=== PATIENT | female | born 1930 | race Caucasian/White ===

== ENCOUNTER 2016-09-10 10:12 | Emergency (ER) | payer OTHER, MEDICARE ==
--- NOTE | 2016-09-10 10:39 | ED GENERAL ADULT ---
History of Present Illness General Chief Complaint: Headache Stated Complaint: RUIZ Source: patient Exam Limitations: no limitations Vital Signs & Intake/Output Vital Signs & Intake/Output Vital Signs Date Time Temp Pulse Resp B/P Pulse O2 O2 Flow FiO2 Ox Delivery Rate 09/10 1024 97.3 101 18 159/76 97 Room Air Allergies Coded Allergies: No Known Allergies (09/10/16) Triage Note: TRIAGE; PT TO ED WITH MULTIPLE COMPLAINTS. STATES THAT LAST SUNDAY SHE HAD AN EPISODE OF DIARRHEA X1 EPISODE, [facility], 5 DAYS AFTER HER EPISODE BECAUSE SHE WAS HAVING A HEADACHE. SHE WAS DX WITH A HEADACHE, HIGH BLOOD PRESSURE, AND DEHYDRATION. PT HAS A HX OF HIGH BLOOD PRESSURE, AND TAKES VALSARTAN DAILY, AND METOPROLOL BID, HOWEVER, THE [facility] DOCTOR TOLD HER TO ONLY TAKE THE PILL ONCE A DAY, SO PT HAS TAKEN THE METOPROLOL ONLY ONCE A DAY ON SUNDAY AND SUNDAY. PT STATES SHE HAD ANOTHER EPISODE OF DIARRHEA X1 EPISODE THIS AM. ALSO C/O HEADACHE INTERMITTENTLY X1 WEEK. PT HAS BEEN TAKING TYLENOL FOR THE PAIN WITH RELIEF. DENIES ANY VISUAL CHANGES. DENIES ANY N/V. DENIES ANY CP/SOB. PETER KAMARA D TO EVAL. Triage Nurses Notes Reviewed? yes Onset: Abrupt Duration: week(s): (1), constant Timing: recent history Injury Environment: home No Modifying Factors: none HPI: 85-year-old female comes into emergency room with multiple complaints. Patient reports that for the past week she's been experiencing some loose stools which is not normal for her. Patient has also been feeling some general body aches, bilateral shoulder pain and some spasming in her left arm. Denies any chest pain or shortness of breath. Patient has also been experiencing a posterior headache and a warm sensation in in the back of her neck. Denies any abdominal pain. Denies any vomiting. Patient has a history of hypertension and hypothyroid. Nothing has seemed to make the symptoms better. Patient reports that she is a high functioning 85-year-old. (FAVIO GREEN,ANH) Reconcile Medications Aspirin (Aspirin*) 81 MG TAB.CHEW 1 TAB PO QPM HEART HEALTH (Reported) Levothyroxine Sodium 88 MCG TABLET 1 TAB PO DAILY AC THYROID (Reported) Lorazepam (Ativan) 0.5 MG TABLET 1 TAB PO QPM PRN sleep Metoprolol Succinate 25 MG TAB 1 TAB PO BID HEART (Reported) Nitrofurantoin Monohyd/M-Cryst (Macrobid 100 MG Capsule) 100 MG CAPSULE 1 CAP PO BID uti with food Ranitidine (Ranitidine HCl) 150 MG TABLET 1 TAB PO DAILY GI (Reported) Simvastatin (Simvastatin*) 20 MG TABLET 1 TAB PO QPM CHOLESTEROL (Reported) Valsartan 80 MG TABLET 1 TAB PO DAILY HEART (Reported) (CINTHYA MARCUS,BELLA) Past History Travel History Traveled to [place] past 21 day No Medical History Any Pertinent Medical History? see below for history Cardiovascular: hypertension, hyperlipidemia Gastrointestinal: GERD Endocrine: hypothyroidism Surgical History Surgical History: non-contributory Psychosocial History What is your primary language Polish Tobacco Use: Never used Family History Hx Contributory? No (ANH LÓPEZ) Review of Systems Review of Systems Constitutional: Reports: see HPI. EENTM: Reports: no symptoms. Respiratory: Reports: no symptoms. Cardiovascular: Reports: no symptoms. GI: Reports: see HPI. Genitourinary: Reports: no symptoms. Musculoskeletal: Reports: see HPI. Skin: Reports: no symptoms. Neurological/Psychological: Reports: see HPI. Hematologic/Endocrine: Reports: no symptoms. Immunologic/Allergic: Reports: no symptoms. All Other Systems: Reviewed and Negative (ANH LÓPEZ) Physical Exam Physical Exam General Appearance: well developed/nourished, no apparent distress, alert Head: atraumatic, normal appearance Eyes: Bilateral: normal appearance, EOMI. Ears, Nose, Throat: normal ENT inspection, hearing grossly normal Neck: normal inspection, full range of motion Respiratory: normal breath sounds, no respiratory distress Cardiovascular: regular rate/rhythm Gastrointestinal: normal bowel sounds, soft, non-tender Back: normal inspection Extremities: normal inspection, normal range of motion Neurologic/Psych: no motor/sensory deficits, awake, alert, oriented x 3, normal gait, normal mood/affect, evaporator operator II-XII nml as tested, finger to nose intact Skin: intact, normal color Core Measures ACS in differential dx? No CVA/TIA Diagnosis: No Severe Sepsis Present: No Septic Shock Present: No (ANH LÓPEZ) Progress Differential Diagnoses I considered the following diagnoses in my evaluation of the patient: Dehydration, electrolyte abnormality, CVA, intracranial bleed, acute HI, enteritis, C. difficile, Plan of Care: Orders Procedure Date/time Status Add-on Test (ER Only) 09/10 113 Active CULTURE,URINE 09/10 1040 Active CULTURE,STOOL 09/10 1038 Active C.DIFFICILE 09/10 1038 Active URINALYSIS 09/10 1038 Complete TROPONIN LEVEL 09/10 103 Complete MAGNESIUM 09/10 103 Complete LIPASE 09/10 1038 Complete COMPREHENSIVE METABOLIC PANEL 09/10 1038 Complete CBC WITHOUT DIFFERENTIAL 09/10 1038 Complete EKG 09/10 103 Active Laboratory Tests 09/10/16 1110: Anion Gap 13, Estimated GFR 53 L, BUN/Creatinine Ratio 20.0, Glucose 100 H, Calcium 9.5, Magnesium 1.6, Total Bilirubin 0.4, AST 25, ALT 37, Alkaline Phosphatase 71, Troponin I < 0.01, Total Protein 7.4, Albumin 4.2, Globulin 3.2, Albumin/Globulin Ratio 1.3, Lipase 171, CBC w Diff NO MAN DIFF REQ, RBC 4.54, MCV 89.3, MCH 30.4, RDW 12.4, MPV 7.5, Gran % 59.2, Lymphocytes % 26.9, Monocytes % 10.9 H, Eosinophils % 2.3, Basophils % 0.7, Absolute Granulocytes 4.2, Absolute Lymphocytes 1.9, Absolute Monocytes 0.8 H, Absolute Eosinophils 0.2, Absolute Basophils 0.1, PUBS MCHC 34.0 09/10/16 1041: Urinalysis LIGHT H, Urine Color STRAW, Urine Clarity CLEAR, Urine pH 6.5, Ur Specific [place] <= 1.005, Urine Protein NEG, Urine Ketones NEG, Urine Nitrite NEG, Urine Bilirubin NEG, Urine Urobilinogen 0.2, Ur Leukocyte Esterase MOD H, Ur Microscopic SEDIMENT EXAMINED, Urine RBC 1-3, Urine WBC 3-5 H, Ur Epithelial Cells RARE, Urine Hemoglobin SMALL H, Urine Glucose NEG Microbiology 09/10 104 URINE ROUT: Urine Culture - RECD 09/10 1038 STOOL: Clostridium difficile Toxin A & B - ORD 09/10 1038 STOOL: Stool Culture - ORD PATIENT STATES SHE ABRUPTY RAN OUT OF HER ATIVAN 0.5 MG THAT SHE TAKES DAILY AT NIGHT 1 WEEK AGO. SHE WAS TAKING THEM DAILY FOR 3 MONTHS BUT THEN HER DOCTOR RETIRED. SHE IS WAITING FOR AN APPOINTMENT IN OCTOBER. NO SEIZURES. (CINTHYA MARCUS,BELLA) Diagnostic Imaging: Viewed by Me: CT Scan. Discussed w/RAD: CT Scan. Radiology Impression: EXAM TYPE: CAT - CT HEAD WO IV CONTRAST EXAMINATION: CT HEAD WITHOUT CONTRAST CLINICAL INFORMATION: Headache COMPARISON: None. TECHNIQUE : Contiguous axial imaging was performed from the skull base to vertex without intravenous administration of contrast. DLP: 529 mGy-cm. FINDINGS: There is no intracranial hemorrhage or hematoma. There is mild fullness of the ventricles along with mild accentuation cortical sulci and fissures consistent with patient age. There is no superimposed hydrocephalus, edema, or mass effect. There is small low attenuation left external capsule image 27/56 likely small vessel ischemic change/gliosis. There is no visible acute territorial infarct. There is extra-axial fluid lateral posterior fossa on left measuring 1.5 x 1.8 cm in greatest dimension without midline shift or impression on the fourth ventricle. This likely represents a small chronic arachnoid cyst. The calvarium appears intact. There is no pneumocephalus or orbital emphysema. The visualized sinuses and middle ears and mastoid air cells show no significant mucosal thickening. There are no air-fluid levels. IMPRESSION: 1. No acute intracranial abnormality. No hemorrhage, edema, or mass effect. 2. Small vessel ischemic change/gliosis left external capsule. 3. Small arachnoid cyst left lateral posterior fossa 1.5 x 1.8 cm. No displacement fourth ventricle. Initial ED EKG: normal intervals, normal p-waves, normal QRS complex, normal sinus rhythm, rate (83) Comments: 09/10/2016 12:45:19 PM Upon reevaluating the patient she did admit that she recently discontinued her Ativan abruptly about a week ago because she ran out of the medication and will not be getting a refill for another couple weeks. This could be potentially explaining some of the patient's symptoms. Patient was prescribed a 2 week supply and told to contact her regular doctor who prescribes it. Patient was seen by Dr. gil. Patient clinically looks well. Nontoxic-appearing. In no apparent distress. Patient understands and agrees with plan of care. Patient was reevaluated multiple times. (FAVIO GREEN,ANH) Departure Departure Disposition: HOME OR SELF CARE Condition: Stable Referrals: CLAUDIA MARCUS,LATOSHA Teixeira. Additional Instructions: Please follow-up with primary care DrBaldo provided for further evaluation. Return to emergency room immediately if any other concerns worsening symptoms. Cause of your symptoms are unclear at this time. Please go over all results of today's visit with your primary care doctor. Contact your primary care doctor to let them know you were here in the emergency room. There may be nonspecific findings which may not be related to your visit today here in the emergency room but may require further evaluation and chronic monitoring by your primary care doctor. If you had a laceration today the chance of foreign body always remains. You should follow-up with your primary care doctor for recheck in 3-5 days for a wound check. If you had an x-ray done there is a chance that a fracture could have been missed on initial read and you should follow-up with your primary care doctor for repeat x-rays if symptoms persist. If your blood pressure was elevated here in the emergency room please have rechecked by her primary care doctor within the next 48 hours by your primary care doctor. If you were prescribed a narcotic here in the emergency room or any type of controlled substances you're not allowed to drive while taking this medication or operate any type of heavy machinery. Narcotics can make you feel lightheaded dizziness nausea and can cause constipation. You may need to pickle water pump operator a stool softener. Thank you for choosing [facility] emergency room. Please return to the emergency room immediately if you have any other concerns worsening of symptoms. Departure Forms: Customer Survey General Discharge Information Prescriptions: Current Visit Scripts Nitrofurantoin Monohyd/M-Cryst (Macrobid 100 MG Capsule) 1 CAP PO BID #14 CAP with food Lorazepam (Ativan) 1 TAB PO QPM PRN sleep #14 TAB (ANH LÓPEZ) Departure Clinical Impression Primary Impression: Benzodiazepine withdrawal Secondary Impressions: Diarrhea, Headache, UTI (urinary tract infection) PA/ANIMAL HERDER Co-Sign Statement Statement: ED Attending supervision documentation- [X] I saw and evaluated the patient. I have also reviewed all the pertinent lab results and diagnostic results. I agree with the findings and the plan of care as documented in the PA's/ANIMAL HERDER's documentation. [X] I have reviewed the ED Record and agree with the PA's/ANIMAL HERDER's documentation. [] Additions or exceptions (if any) to the PAs/ANIMAL HERDER's note and plan are summarized below: [] (CINTHYA MARCUS,BELLA) Critical Care Note Critical Care Note Critical Care Time: non-applicable (ANH LÓPEZ)
[2016-09-10] MEDS ORDERED: VALSARTAN80 M1 PO (10:58)
[2016-09-10] MEDS ORDERED: METOPROLOL SUCC25 M1 PO (10:59)
[2016-09-10] MEDS ORDERED: LEVOTHYROXINE88 MCG PO (10:59)
[2016-09-10] MEDS ORDERED: SIMVASTATIN20 M2 PO (11:00)
[2016-09-10] MEDS ORDERED: ASPIRIN81 M4 PO (11:00)
[2016-09-10] MEDS ORDERED: RANITIDINE HCL150 MG PO (11:00)
--- NOTE | 2016-09-10 11:20 | CT SCAN REPORT ---
EXAMINATION: CT HEAD WITHOUT CONTRAST CLINICAL INFORMATION: Headache COMPARISON: None. TECHNIQUE: Contiguous axial imaging was performed from the skull base to vertex without intravenous administration of contrast. DLP: 529 mGy-cm. FINDINGS: There is no intracranial hemorrhage or hematoma. There is mild fullness of the ventricles along with mild accentuation cortical sulci and fissures consistent with patient age. There is no superimposed hydrocephalus, edema, or mass effect. There is small low attenuation left external capsule image 27/56 likely small vessel ischemic change/gliosis. There is no visible acute territorial infarct. There is extra-axial fluid lateral posterior fossa on left measuring 1.5 x 1.8 cm in greatest dimension without midline shift or impression on the fourth ventricle. This likely represents a small chronic arachnoid cyst. The calvarium appears intact. There is no pneumocephalus or orbital emphysema. The visualized sinuses and middle ears and mastoid air cells show no significant mucosal thickening. There are no air-fluid levels. IMPRESSION: 1. No acute intracranial abnormality. No hemorrhage, edema, or mass effect. 2. Small vessel ischemic change/gliosis left external capsule. 3. Small arachnoid cyst left lateral posterior fossa 1.5 x 1.8 cm. No displacement fourth ventricle.
[2016-09-10 11:35] LABS: ABSOLUTE BASOPHIL COUNT 0.1 /CUMM (0.0-0.2); ABSOLUTE EOSINOPHIL COUNT 0.2 /CUMM (0.0-0.7); ABSOLUTE GRANULOCYTE CT 4.2 /CUMM (1.4-6.5); ABSOLUTE LYMPH COUNT 1.9 /CUMM (1.2-3.4); ABSOLUTE MONOCYTE COUNT 0.8 /CUMM (0.10-0.60); BASOPHIL % 0.7 % (0.0-2.0); EOSINOPHIL % 2.3 % (0-5); GRANULOCYTE % 59.2 % (42.2-75.2); HEMATOCRIT 40.5 % (37-47); MEAN CORPUSCULAR HGB 30.4 PG (27.0-31.0); MEAN CORPUSCULAR VOLUME 89.3 FL (81.0-99.0); MEAN PLATELET VOLUME 7.5 FL (7.4-10.4); PLATELET COUNT 323 /CUMM (130-400); RBC DISTRIBUTION WIDTH 12.4 % (11.5-14.5); RED BLOOD CELL CT 4.54 /CUMM (4.20-5.40); WHITE BLOOD CELL COUNT 7.1 /CUMM (4.8-10.8)
[2016-09-10] MEDS ORDERED: MACROBID 100 M100 MG PO (12:37)
[2016-09-10] MEDS ORDERED: ATIVAN0.5 M1 PO (12:43)
[2016-09-10 12:54] VITALS: BP 136/74
== END 2016-09-10 13:26 ==
LOC: ERH 10:12
PROVIDERS: Physician Assistant Medical
DX: F13.239 Sedative, hypnotic or anxiolytic dependence with withdrawal, unspecified (principal); R19.7 Diarrhea, unspecified; R51 Headache; N39.0 Urinary tract infection, site not specified
CPT/HCPCS: 81001; 87045; 87086; 93005; 93010

== ENCOUNTER 2016-10-20 20:56 | Emergency (ER) | payer OTHER, MEDICARE ==
[~2016-10-20] VITALS: Ht 165.1 cm; Wt 64.0 kg
[~2016-10-20 20:56] MED LIST: ASPIRIN81 M4 PO; ATIVAN0.5 M1 PO; LEVOTHYROXINE88 MCG PO; MACROBID 100 M100 MG PO; METOPROLOL SUCC25 M1 PO; RANITIDINE HCL150 MG PO; SIMVASTATIN20 M2 PO; VALSARTAN80 M1 PO
--- NOTE | 2016-10-20 22:07 | ED AMS/SEIZURE/WEAK/DIZZY ---
History of Present Illness General Chief Complaint: General Adult Stated Complaint: PT HEADACHE, SHAKEY A LOT Source: patient, family Exam Limitations: no limitations Vital Signs & Intake/Output Vital Signs & Intake/Output Vital Signs Date Time Temp Pulse Resp B/P Pulse O2 O2 Flow FiO2 Ox Delivery Rate 10/21 0027 97.2 73 18 147/70 95 Room Air 10/20 2238 84 186/84 10/201 179/99 10/20 2118 96.9 84 18 191/89 96 Room Air ED Intake and Output 10/21 0000 10/20 1200 Intake Total 0 Output Total Balance 0 Intake, Oral 0 Patient 141 lb Weight Allergies Coded Allergies: No Known Allergies (09/10/16) Reconcile Medications Aspirin (Aspirin*) 81 MG TAB.CHEW 1 TAB PO QPM HEART HEALTH (Reported) Biotin (Unknown Strength) CAPSULE (Unknown Dose) PO DAILY SUPPLEMENT ( Reported) Calcium Carbonate/Vitamin D3 (Calcium 500 + D Tablet) (Unknown Strength) TABLET (Unknown Dose) PO DAILY SUPPLEMENT (Reported) Esomeprazole (Nexium) 40 MG CAPSULE.DR 1 CAP PO DAILY GI (Reported) Fluticasone Propionate (Unknown Strength) SPRAY.SUSP (Unknown Dose) UNKNOWN ( Reported) Levothyroxine Sodium 88 MCG TABLET 1 TAB PO DAILY AC THYROID (Reported) Metoprolol Succinate 25 MG TAB 1 TAB PO BID HEART (Reported) Multivit-Min/FA/Lycopen/Lutein (Centrum Silver Tablet) (Unknown Strength) TABLET (Unknown Dose) PO DAILY SUPPLEMENT (Reported) Nitrofurantoin Monohyd/M-Cryst (Macrobid 100 MG Capsule) 100 MG CAPSULE 1 CAP PO BID UTI with food [place]-3 Fatty Acids (Fish Oil) (Unknown Strength) CAPSULE (Unknown Dose) PO DAILY SUPPLEMENT (Reported) Simvastatin (Simvastatin*) 20 MG TABLET 1 TAB PO QPM CHOLESTEROL (Reported) Valsartan 80 MG TABLET 1 TAB PO DAILY HEART (Reported) Triage Note: PT TO ED C/O HEADACHE AND FEELING SHAKEY. STATES AT APPROX 1800 "MY LEGS FELT FUNNY AND IT WENT UP MY BODY" "IT WAS AN ATTACK OF SOME KIND" "LEAVES ME WITH A VERY STRANGE HEAD" DENIES VISION CHANGES. NAUSEA EARLIER "I DID NOT LIKE THAT DINNER" STATES SHE FEELS A LITTLE BETTER NOW. PMH OF CYST ON BRAIN. HYPERTENSIVE IN TRIAGE, STATES IS NOT NORMAL FOR HER Triage Nurses Notes Reviewed? yes Onset: Gradual Duration: minute(s):, gone now Timing: single episode today Injury Environment: restaurant Severity: mild Modifying Factors: Improves With: rest. Associated Symptoms: "I thought or legs were weak." HPI: 85-year-old woman in prior good health, very active, presents with an episode where she, "got shaky in my lower legs." She notes that she did not eat much dinner. She had been very active during the day, including water aerobics. She believes that she did not drink as much as she normally does. She notes that her legs felt rubbery. Her symptoms completely resolved with rest. She had no chest pain shortness of breath dizziness syncopal symptoms. She she arrives in the ED and feels perfectly fine. Past History Travel History Traveled to [place] past 21 day No Medical History Any Pertinent Medical History? see below for history Cardiovascular: hypertension, hyperlipidemia Gastrointestinal: GERD Endocrine: hypothyroidism Surgical History Surgical History: non-contributory Psychosocial History What is your primary language Vietnamese Tobacco Use: Never used ETOH Use: denies use Illicit Drug Use: denies illicit drug use Family History Hx Contributory? No Review of Systems Review of Systems Constitutional: Reports: no symptoms. EENTM: Reports: no symptoms. Respiratory: Reports: no symptoms. Cardiovascular: Reports: no symptoms. GI: Reports: no symptoms. Genitourinary: Reports: no symptoms. Musculoskeletal: Reports: no symptoms. Skin: Reports: no symptoms. Neurological/Psychological: Reports: no symptoms. Hematologic/Endocrine: Reports: no symptoms. Immunologic/Allergic: Reports: no symptoms. All Other Systems: Reviewed and Negative Physical Exam Physical Exam General Appearance: well developed/nourished, no apparent distress, alert, comfortable Head: atraumatic, normal appearance, active bleeding Eyes: Bilateral: normal appearance, PERRL, EOMI. Ears, Nose, Throat: normal pharynx, normal ENT inspection Neck: normal inspection, supple, full range of motion Respiratory: normal breath sounds, chest non-tender, no respiratory distress, quiet respiration, lungs clear Cardiovascular: regular rate/rhythm Gastrointestinal: normal bowel sounds, soft, non-tender, no organomegaly Back: normal inspection, normal range of motion Extremities: normal range of motion Neurologic/Psych: no motor/sensory deficits, awake, alert, oriented x 3 Reflexes: 1+: bicep (R), bicep (L), knee (R), knee (L). Skin: intact, normal color, warm/dry Core Measures ACS in differential dx? No CVA/TIA Diagnosis: No Severe Sepsis Present: No Septic Shock Present: No Progress Differential Diagnosis: dehydration, vasovagal event, vs other. Plan of Care: Orders Procedure Date/time Status TROPONIN LEVEL 10/20 2115 Complete EKG 10/20 2115 Active URINALYSIS 10/20 2107 Complete LIPASE 10/20 2107 Complete HEPATIC FUNCTION PANEL 10/20 2107 Complete CBC WITHOUT DIFFERENTIAL 10/20 2107 Complete BASIC METABOLIC PANEL 10/20 2107 Complete AMYLASE 10/20 2107 Complete Laboratory Tests 10/20/162209: Troponin I < 0.01 10/20/162209: Anion Gap 8, Estimated GFR 47 L, BUN/Creatinine Ratio 19.1, Glucose 119 H, Calcium 9.3, Total Bilirubin 0.4, Direct Bilirubin 0.3, AST 29, ALT 33, Alkaline Phosphatase 74, Total Protein 7.4, Albumin 4.1, Amylase 78, Lipase 163, CBC w Diff NO MAN DIFF REQ, RBC 4.46, MCV 89.4, MCH 30.4, RDW 12.8, MPV 7.5, Gran % 62.9, Lymphocytes % 25.4, Monocytes % 9.5 H, Eosinophils % 1.5, Basophils % 0.7 , Absolute Granulocytes 4.4, Absolute Lymphocytes 1.8, Absolute Monocytes 0.7 H , Absolute Eosinophils 0.1, Absolute Basophils 0, PUBS MCHC 34.0 10/20/16 1950: Urine Color YEL, Urine Clarity CLEAR, Urine pH 7.0, Ur Specific [place] <= 1.005 , Urine Protein NEG, Urine Ketones NEG, Urine Nitrite NEG, Urine Bilirubin NEG, Urine Urobilinogen 0.2, Ur Leukocyte Esterase MOD H, Ur Microscopic SEDIMENT EXAMINED, Urine RBC 3-5, Urine WBC 15-25 H, Ur Epithelial Cells TRANS H, Urine Hemoglobin SMALL H, Urine Glucose NEG Diagnostic Imaging: Viewed by Me: CT Scan. Discussed w/RAD: CT Scan. Radiology Impression: head CT-no acute disease. full report below Initial ED EKG: normal axis, normal intervals, normal p-waves, normal QRS complex, normal sinus rhythm Comments: PATIENT: NISH MENA PRESENT AGE: 85 PATIENT ACCOUNT NO: [id number] : 30 LOCATION: [facility] ORDERING PHYSICIAN: BJ NAM MD SERVICE DATE: 10/20/16 EXAM TYPE: CAT - CT HEAD WO IV CONTRAST EXAMINATION: CT HEAD WITHOUT CONTRAST CLINICAL INFORMATION: Headache, history of cyst COMPARISON: 09/10/2016 TECHNIQUE: Contiguous axial imaging was performed from the skull base to vertex without intravenous administration of contrast. DLP: 529.16 mGy-cm FINDINGS: There is no evidence of acute intracranial hemorrhage or territorial infarction. No abnormal mass effect or midline shift is seen. Terry to white matter differentiation is well preserved. No extra-axial fluid collections are identified. The ventricles are normal in size. There is mild periventricular white matter hypoattenuation consistent with chronic small vessel ischemic disease. Mild volume loss is noted. There is a redemonstrated suspected arachnoid cyst in the left lateral aspect of the posterior fossa. The osseous structures and soft tissues are normal. The mastoid air cells and visualized portions of the paranasal sinuses are well aerated. IMPRESSION: No acute intracranial pathology. Chronic findings without significant change from 09/10/2016. DICTATED BY: SHANTELL MARY MD DATE/TIME DICTATED:10/20/162353 [employer] TECHNICIAN:ABHIJIT DATE/TIME TRANSCRIBED:10/20/162353 CONFIDENTIAL, DO NOT COPY WITHOUT APPROPRIATE AUTHORIZATION. <Electronically signed in Other Vendor System> SIGNED BY: SHANTELL MARY MD 10/21/16 0003 Departure Departure Disposition: HOME OR SELF CARE Condition: Stable Clinical Impression Primary Impression: Vasovagal episode Secondary Impressions: Hypertension, UTI (urinary tract infection), Weakness Referrals: JUAN CARLOS MUSA MD (PCP/Family) Departure Forms: Customer Survey General Discharge Information Prescriptions: Current Visit Scripts Nitrofurantoin Monohyd/M-Cryst (Macrobid 100 MG Capsule) 1 CAP PO BID #14 CAP with food Comments Patient presented with a vague transient episode of lower extremity weakness and "feeling funny". Her labs are benign, suggestive of slight dehydration given the BUN creatinine ratio of 21 over 1.1. She is felt well throughout her entire ED stay. Her CAT scan was benign. Her physical exam is benign. I discussed at great length her symptoms. She does not believe that she has dysuria. She never had chest pain or syncopal type symptoms. I believe that she may have had a mild vasovagal episode in the context of slight hypovolemia. I discussed this at great length. She will follow-up with her life teacher on Sunday. I counseled her to return to emergency department if her symptoms recur.
[2016-10-20 22:24] LABS: ABSOLUTE BASOPHIL COUNT 0 /CUMM (0.0-0.2); ABSOLUTE EOSINOPHIL COUNT 0.1 /CUMM (0.0-0.7); ABSOLUTE GRANULOCYTE CT 4.4 /CUMM (1.4-6.5); ABSOLUTE LYMPH COUNT 1.8 /CUMM (1.2-3.4); ABSOLUTE MONOCYTE COUNT 0.7 /CUMM (0.10-0.60); BASOPHIL % 0.7 % (0.0-2.0); EOSINOPHIL % 1.5 % (0-5); GRANULOCYTE % 62.9 % (42.2-75.2); HEMATOCRIT 39.8 % (37-47); MEAN CORPUSCULAR HGB 30.4 PG (27.0-31.0); MEAN CORPUSCULAR VOLUME 89.4 FL (81.0-99.0); MEAN PLATELET VOLUME 7.5 FL (7.4-10.4); PLATELET COUNT 315 /CUMM (130-400); RBC DISTRIBUTION WIDTH 12.8 % (11.5-14.5); RED BLOOD CELL CT 4.46 /CUMM (4.20-5.40)
[2016-10-20] MEDS ORDERED: NEXIUM40 M1 PO (22:45)
[2016-10-20] MEDS ORDERED: FLUTICASONE PRO16 GM (22:47)
[2016-10-20] MEDS ORDERED: CALCIUM 500 +1 EAC5 PO (22:47)
[2016-10-20] MEDS ORDERED: BIOTIN2500 MCG PO (22:48)
[2016-10-20] MEDS ORDERED: CENTRUM SILVER1 EAC3 PO (22:49)
[2016-10-20] MEDS ORDERED: FISH OIL500 M1 PO (22:50)
--- NOTE | 2016-10-21 00:03 | CT SCAN REPORT ---
EXAMINATION: CT HEAD WITHOUT CONTRAST CLINICAL INFORMATION: Headache, history of cyst COMPARISON: 09/10/2016 TECHNIQUE: Contiguous axial imaging was performed from the skull base to vertex without intravenous administration of contrast. DLP: 529.16 mGy-cm FINDINGS: There is no evidence of acute intracranial hemorrhage or territorial infarction. No abnormal mass effect or midline shift is seen. Terry to white matter differentiation is well preserved. No extra-axial fluid collections are identified. The ventricles are normal in size. There is mild periventricular white matter hypoattenuation consistent with chronic small vessel ischemic disease. Mild volume loss is noted. There is a redemonstrated suspected arachnoid cyst in the left lateral aspect of the posterior fossa. The osseous structures and soft tissues are normal. The mastoid air cells and visualized portions of the paranasal sinuses are well aerated. IMPRESSION: No acute intracranial pathology. Chronic findings without significant change from 09/10/2016.
[2016-10-21 00:27] VITALS: BP 147/70
[2016-10-21] MEDS ORDERED: MACROBID 100 M100 MG PO (00:54)
== END 2016-10-21 01:21 ==
LOC: ERH 20:56
PROVIDERS: Pediatrics
DX: R55 Syncope and collapse (principal); I10 Essential (primary) hypertension; N39.0 Urinary tract infection, site not specified; R53.1 Weakness
CPT/HCPCS: 81001; 93005; 93010